=== PATIENT | female | born 1955 ===

== ENCOUNTER → 2017-02-12 | Outpatient (CLI) | payer OTHER | LOC: FIMAGING 10:09 | PROVIDERS: ATTEND Family Medicine | DX: Z12.31 Encounter for screening mammogram for malignant neoplasm of breast (principal) | CPT/HCPCS: G0202 ==

== ENCOUNTER → 2017-07-15 | Outpatient (CLI) | payer MEDICAID | LOC: CIMAGING 08:45 | PROVIDERS: ATTEND Family Medicine | DX: M51.36 Other intervertebral disc degeneration, lumbar region (principal); I70.90 Unspecified atherosclerosis | CPT/HCPCS: 72100-PO ==

== ENCOUNTER → 2017-08-06 | Outpatient (CLI) | payer MEDICAID | LOC: FIMAGING 08:03 | PROVIDERS: ATTEND Family Medicine | DX: M51.36 Other intervertebral disc degeneration, lumbar region (principal); M12.88 Other specific arthropathies, not elsewhere classified, other specified site; M48.061 Spinal stenosis, lumbar region without neurogenic claudication ==

== ENCOUNTER → 2018-07-11 | Outpatient (CLI) | payer MEDICAID | LOC: CIMAGING 10:55 | PROVIDERS: ATTEND Family Medicine | DX: M85.641 Other cyst of bone, right hand (principal); M89.8X3 Other specified disorders of bone, forearm; E11.40 Type 2 diabetes mellitus with diabetic neuropathy, unspecified | CPT/HCPCS: 73090-PO; 73110-PO ==